=== PATIENT | female | born 1950 | race Caucasian/White ===

== ENCOUNTER → 2016-10-13 | Outpatient (CLI) | payer MEDICARE, BC ==
[2016-10-13 11:15] LABS: CH 27.3; CHCM 31.9; HCT 38.8 % (34.0-46.0); HDW 2.27; MCH 26.7 pg (25.0-35.0); MCV 86.1 fL (80.0-100.0); Mean Platelet Volume 7.4; RDW 13.3 % (11.5-15.5); WBC 14.8 k/uL (3.8-10.6)
== END | disposition home or self-care (01) ==
LOC: LABWHC1 10:35
PROVIDERS: ATTEND Orthopaedic Surgery
DX: M25.552 Pain in left hip (principal); M70.62 Trochanteric bursitis, left hip; M51.36 Other intervertebral disc degeneration, lumbar region
CPT/HCPCS: 36415; 84165; 85027

== ENCOUNTER → 2016-11-11 | Outpatient (CLI) | payer MEDICARE, BC ==
--- NOTE | 2016-11-11 14:43 | NM ---
EXAMINATION TYPE: NM bone scan whole body DATE OF EXAM: 11/11/2016 2:05 PM COMPARISON: Same day CT cap study HISTORY: Abnormal bone marrow signal per order. Symptoms of left hip and back pain per patient. Delayed whole-body scanning was performed following the injection of 27.4 mCi Tc 99m MDP. Images acq uired 3 hours post injection. Additional spot images of the thorax abdomen pelvis including calvarium are acquired FINDINGS: There is oval area of increased radiotracer uptake in the left posterior parietal region of the skull . There is focal area of abnormal radiotracer uptake involving the lower sternum just left of midline w ithout suspicious lytic or sclerotic lesion seen on corresponding CT. There is focal area of increase d radiotracer uptake anterior upper left rib again without definitive lesion seen on CT. There is focal area of abnormal uptake in the left iliac bone abutting sacroiliac joint corresponds t o destructive lytic lesion CT axial image 89. Additional smaller areas of abnormal radiotracer uptake in the sacrum just left of midline shows corresponding sclerotic focus on CT coronal image 75. Some area of abnormal uptake right pelvis does not show definitive abnormal lesion on CT. Increased uptake lower lumbar spine corresponds to focal degenerative change L4-L5 level with sclerosis and disc spac e narrowing. Mild increase uptake in both knee joints is presumed product of degenerative change. IMPRESSION: Multifocal areas of radiotracer uptake are worrisome for ossific metastatic disease. Dest ructive lesion left iliac bone is amenable to percutaneous biopsy for tissue sampling if desired. Con science technician CT correlation for cranial lesion.
--- NOTE | 2016-11-12 12:52 | CT ---
EXAMINATION TYPE: CT ChestAbdPelvis w con DATE OF EXAM: 11/11/2016 12:17 PM COMPARISON: Outside left hip MRI report dated 10/15/2016 which reports multiple bone lesions in the pe lvis, largest measuring 3.3 cm in the posterior left iliac bone. HISTORY: 66-year-old female complains of low back pain and left hip pain. Abnormal bone marrow signal , observation. TECHNIQUE: Contiguous axial scanning of the chest, abdomen, and pelvis performed with IV Contrast, pa tient injected with 100 mL of Omnipaque 300. Delayed images through the kidneys were obtained. Rich l/sagittal reconstructions performed. CT DLP: 1049.1 mGycm Automated exposure control for dose reduction was used. FINDINGS: CHEST: The heart is normal size without pericardial effusion. Coronary vessel calcifications are present in remarkable for coronary artery disease. Mild to moderate atherosclerotic plaque within the thoracic aorta. Conventional arch vessel branching anatomy. There is a borderline enlarged 1 cm precarinal lymph node. Suggestion of left paraesophageal lymphade nopathy measuring up to 1.5 cm below the level of the richy. Additional smaller lower paraesophageal lymph nodes are suggesting measure 9 and 11 mm, axial image 39 and 42. There is masslike area of consolidation extending from the left infrahilar region within the lower lo be down to the peripheral left base pleural surface and also extending into the inferior lingula. Thi s region spans 9.9 x 4.2 cm on axial image 38 and cuts off an anterior segmental left lower lobe bron chus, axial image 30. 5 mm indeterminate pulmonary nodule anterior right mid lung axial image 28. No pleural effusion. ABDOMEN: Low attenuation of the hepatic parenchyma suggesting hepatic steatosis. Portal venous system is paten t. Cholecystectomy clips are present. No biliary ductal dilatation. Adrenal glands, right kidney, spleen, and pancreas appear within normal limits. Mildly enlarged jose hepatic lymph node measuring 1.3 cm is indeterminate. Portacaval lymph node is prominent but within normal limits at 9 mm. No dilated small bowel, free fluid, or free air. Moderate prostatic calcifications throughout the abdominal aorta and iliac arteries. Normal appendix. There is sigmoid diverticulosis without pericolonic inflammatory change. There is focal eccentric wall thickening along the left lateral aspect of the distal sigmoid measurin g 1.5 x 2.2 cm, axial image 92, coronal image 53, and sagittal image 57 which warrants further evalua tion. Pelvis: There is some pelvic floor relaxation. Uterus and ovaries are visualized. 1.8 cm low-density area inv olving the left ovary and a 4.4 cm cystic lesion involving the right ovary which warrants ultrasound evaluation for further characterization. No abnormal fluid collection in the pelvis and no pelvic lym phadenopathy seen. Bones: There is a 3.4 cm lytic lesion within the posterior left iliac bone which thins the overlying lateral iliac cortex. There appears to be a second lesion within the left sacroiliac adjacent to the SI join t characterize by cortical loss anteriorly, axial image 85. Additional lesion seen within the right i liac wing probably eroding the anterior cortex. Suspicious round lesions within the L4 and T9 vertebral bodies. IMPRESSION: 1. A MASSLIKE AREA OF CONSOLIDATION EXTENDING FROM THE LEFT INFRAHILAR REGION TO THE PERIPHERAL LEFT LUNG BASE MEASURING 9.9 X 4.2 CM CUTTING OFF AN ANTERIOR SEGMENTAL LEFT LOWER LOBE BRONCHUS. GIVEN TH E OSSEOUS FINDINGS, LUNG CANCER SHOULD BE EXCLUDED. ENDOBRONCHIAL EVALUATION CAN BE CONSIDERED. 2. A 2.2 CM AREA OF SOFT TISSUE THICKENING ALONG THE LEFT LATERAL WALL OF THE DISTAL SIGMOID. DIRECT VISUALIZATION TO EXCLUDE A NEOPLASTIC ETIOLOGY. 3. PELVIC ULTRASOUND TO FURTHER CHARACTERIZE THE CYSTIC OVARIAN LESIONS MEASURING UP TO 4.4 CM ON THE RIGHT. IN A POSTMENOPAUSAL PATIENT, CYSTIC EPITHELIAL OVARIAN NEOPLASMS ARE IN THE DIFFERENTIAL. 4. PARAESOPHAGEAL LYMPHADENOPATHY MEASURING UP TO 1.5 CM SUSPICIOUS FOR METASTATIC DISEASE. A 5 MM RI GHT MIDLUNG PULMONARY NODULE IS NONSPECIFIC AND SHOULD BE FOLLOWED. 5. NONSPECIFIC MILDLY ENLARGED JOSE HEPATIC LYMPH NODE AT 1.3 CM. 6. OSSEOUS METASTATIC DISEASE TO THE PELVIS AND ADDITIONAL SUSPICIOUS FOCI INVOLVING L4 AND T9 VERTEB RAL BODIES. LARGEST BONE LESION MEASURES 3.4 CM INVOLVING THE LEFT POSTERIOR ILEUM.
== END | disposition home or self-care (01) ==
LOC: RADNMMAIN 09:53
PROVIDERS: ATTEND Internal Medicine Hematology & Oncology
DX: C79.51 Secondary malignant neoplasm of bone (principal); R91.8 Other nonspecific abnormal finding of lung field; N83.201 Unspecified ovarian cyst, right side; R59.9 Enlarged lymph nodes, unspecified; Z88.8 Allergy status to other drugs, medicaments and biological substances
CPT/HCPCS: 71260; 74177; 78306; A9503; Q9967

== ENCOUNTER 2016-11-18 10:58 | Day surgery (SDC) | payer MEDICARE, BC ==
[2016-11-17 08:57] VITALS: BMI 31.6
[~2016-11-18 10:58] MED LIST: ALBUTEROL NEB (CONC) 2.5 MG/0.5 ML INHALATION ONE; ATROPINE SULFATE 0.4 MG/ML 1 ML VIAL IM ONE; LACTATED RINGERS 1,000 ML IV ONE; LIDOCAINE 2% (PF) 20 MG/ML 10ML INHALATION ONE
[2016-11-18] MEDS ORDERED: LACTATED RINGERS 1,000 ML IV ONE (11:12)
[2016-11-18 11:18] VITALS: TEMP 98
[2016-11-18] MEDS ORDERED: LIDOCAINE 1% 20 ML VIAL (10MG/ML) FOR IV START INTRADERMA ONE (11:29)
[2016-11-18 11:38] LABS: Glucose,Whole Blood 123 mg/dL (75-99)
[2016-11-18] MEDS ORDERED: MIDAZOLAM 2 MG/2 ML VIAL ONE (11:59)
[2016-11-18] MEDS ORDERED: GLYCOPYRROLATE 0.2 MG/ML 2 ML VIAL ONE (11:59)
[2016-11-18] MEDS ORDERED: LIDOCAINE 1% INJ 10MG/ML (20 ML MDV) ONE (11:59)
[2016-11-18] MEDS ORDERED: PROPOFOL 10 MG/ML 20 ML VIAL IV ONE (11:59)
[2016-11-18 12:31] VITALS: RESP 14
[2016-11-18 13:51] VITALS: BP 162/70; PULSE 89
--- NOTE | 2016-11-18 20:35 | PCN ---
DATE OF PROCEDURE: PROCEDURE PERFORMED: Bronchoscopy, airway examination, brushes, washes and endobronchial biopsies left lower lobe. PREOPERATIVE DIAGNOSIS: Lung mass. POSTOPERATIVE DIAGNOSIS: Lung mass. DESCRIPTION OF PROCEDURE: The patient received unconscious sedation with general anesthesia. UNDER GROUND [employer]ER provided. The patient's procedure was done in Room #2. There was informed consent. There was universal timeout. After the patient was adequately sedated, and being fully monitored, the bronchoscope was inserted through the right nostril. It passed through the right nasopharynx into the oropharynx. The hypopharynx was identified and topicalized. The hypopharyngeal structures, including anterior commissure, true cords, false cords, arytenoids, piriform sinuses, right and left valleculae all appeared normal. After topicalization, bronchoscope was pushed through the glottic opening into the trachea. Trachea appeared normal. Tracheal richy was sharp. Right and left mainstem were topicalized. The right upper lobe and its 3 segments, the right lower lobe and its 2 segments, the right middle lobe and its 2 segments, and the right lower lobe and its 5 segments were all found to be normal. On the left side, likewise, the left upper lobe proper and its 2 segments, and the lingula and its 2 segments, were found to be normal. In the left lower lobe, I was expecting to find an endobronchial lesion. I did not find any. There was some mucosal irregularity. There was no distinct mass or tumor. I went ahead and did endobronchial biopsies, brushes and washes in the left lower lobe. The patient tolerated the procedure well. There was minimal bleeding. There was good hemostasis prior to the bronchoscope was being withdrawn. The patient tolerated the procedure well. Will be recovered. I may need another procedure down the line depending on the results here. Again, the patient tolerated the procedure well without difficulty.
[2016-11-18 21:58] LABS: RBC, Body Fluid 61500 /uL
== END 2016-11-18 13:38 | disposition home or self-care (01) ==
LOC: ORWHC2ENDO 10:58
PROVIDERS: ATTEND Internal Medicine Critical Care Medicine
DX: J98.4 Other disorders of lung (principal); J18.9 Pneumonia, unspecified organism; Z88.8 Allergy status to other drugs, medicaments and biological substances; I10 Essential (primary) hypertension; E78.5 Hyperlipidemia, unspecified; E11.9 Type 2 diabetes mellitus without complications; M54.5 Low back pain; Z79.84 Long term (current) use of oral hypoglycemic drugs; Z79.899 Other long term (current) drug therapy; Z79.891 Long term (current) use of opiate analgesic; Z87.891 Personal history of nicotine dependence
CPT/HCPCS: 94640; 87798 ×4; 87496; 87498; 87529; 88104; 88108; 88305; 89050; 87252; 87502; 87070; 87205; 87116; 87102; 87186; 87206; 31625; 31623; J2250; J0461; J2001 ×2; J2704; 31624

== ENCOUNTER → 2016-11-25 | Outpatient (CLI) | payer MEDICARE, BC ==
--- NOTE | 2016-11-25 10:44 | BD ---
EXAMINATION TYPE: MG DEXA axial skeleton. DATE OF EXAM: 11/25/2016 10:20 AM COMPARISON: Prior DEXA bone scan report January 25, 2002. CLINICAL HISTORY: Postmenopausal female Height: 5 FT 3/4 IN Weight: 161 FRAX RISK QUESTIONS: Alcohol (3 or more units per day): YES Family History (Parent hip fracture): NO Glucocorticoids (More than 3mos): NO (Ex: prednisone, prednisolone, methylprednisolone, dexamethasone, and hydrocortisone). History of Fracture in Adulthood: YES Secondary Osteoporosis: 1. Type 1 Diabetes: NO 2. Hyperthyroidism: NO 3. Menopause before 45: NO 4. Malnutrition: NO 5. Chronic liver disease: NO Rheumatoid Arthritis: NO Current Tobacco Use: NO RISK FACTORS HISTORY OF: History of Wrist Fracture: RT WRIST When: IN HER 30'S Other Fractures since Age 48: YES RT FOOT When: AGE 56 Drink Alcohol: YES Active: NO Postmenopausal woman: AGE 47 MEDICATIONS: Additional Medications: METFORMIN,VALESTAR,,VIT CALCIUM Additional History: EXAM MEASUREMENTS: Bone mineral densitometry was performed using the [place] System. Bone mineral density as measured about the Lumbar spine is: ----- L1-L4(G/cm2): 1.022 T Score Values are as follows: ----- L2: -2.7 ----- L3: -1.1 ----- L4: 0.1 ----- L1-L4: 1.3 Bone mineral density has: Decreased -5.6% since study of: 2001 Bone mineral density about the R hip (g/cm2): 0.875 Bone mineral density about the L hip (g/cm2): 0.823 T Score values are as follows: -----R Neck: -1.2 -----L Neck: -1.5 -----R Intertrochanter: -1.7 -----L Intertrochanter: -2.0 Bone mineral density has: Decreased -11.1% since study of: 2001 IMPRESSION: Osteopenia (T Score between -2.5 and -1 as noted by T score values in the low back and femoral neck l evel and bilateral hips. Bone density is noted decreased or diminished from prior exam.There is sligh tly increased risk of fracture and the patient may be considered for treatment. Re-Screen 1-2 years. NOTE: T-SCORE=SD OF THE YOUNG ADULT MEAN.
--- NOTE | 2016-11-25 11:43 | MM ---
Reason for exam: screening (asymptomatic). Last mammogram was performed 1 year ago. History: Patient is postmenopausal. Family history of breast cancer in grandmother at age 70. Benign excisional biopsy of the right breast. Physical Findings: A clinical breast exam by your physician is recommended on an annual basis and results should be correlated with mammographic findings. MG 3D Screening Mammo W/Cad Bilateral CC and MLO view(s) were taken. Prior study comparison: November 24, 2015, bilateral MG screening mammo w CAD. November 21, 2014, bilateral MG screening mammo w CAD. April 29, 2014, bilateral MG screening mammo w CAD. The breast tissue is heterogeneously dense. This may lower the sensitivity of mammography. Finding: There are indeterminate, grouped/clustered calcifications in the upper outer quadrant, posterior position of the left breast. There is a chronic nodularity in the right breast. Increase in number of calcifications. ASSESSMENT: Incomplete: need additional imaging evaluation, BI-RAD 0 RECOMMENDATION: Special view mammogram of the left breast. [facility] will attempt to contact patient to return for supplemental views.
== END | disposition home or self-care (01) ==
LOC: RADMAMWWP 09:43
PROVIDERS: ATTEND Family Medicine
DX: Z12.31 Encounter for screening mammogram for malignant neoplasm of breast (principal); R92.8 Other abnormal and inconclusive findings on diagnostic imaging of breast; M85.89 Other specified disorders of bone density and structure, multiple sites; N95.8 Other specified menopausal and perimenopausal disorders
CPT/HCPCS: 77080; 77063; G0202

== ENCOUNTER 2016-12-03 09:34 | Day surgery (SDC) | payer MEDICARE, BC ==
[2016-12-03 10:21] VITALS: RESP 16
[2016-12-03 10:30] LABS: Mean Platelet Volume 7.4
[2016-12-03 10:34] LABS: Prothrombin Time 10.5 sec (9.0-12.0)
[2016-12-03 11:09] VITALS: TEMP 98
[2016-12-03 12:05] LABS: Glucose,Whole Blood 104 mg/dL (75-99)
[2016-12-03] MEDS ORDERED: HYDROmorphone 1 MG/ML 1 ML SYRINGE IVP STA (12:21)
[2016-12-03 13:03] VITALS: BP 121/78; PULSE 68
--- NOTE | 2016-12-03 15:53 | CT ---
EXAMINATION TYPE: CT biopsy bone superficial fine-needle aspiration lytic bone lesion, core biopsy ly tic bone lesion left ilium DATE OF EXAM: 12/03/2016 1:02 PM HISTORY: Metastatic disease, multiple lytic bone lesions, breast cancer COMPARISON: NONE Maximal barrier technique was utilized. The skin overlying a suitable path to the lesion was localiz ed using CT and the overlying skin was prepped and draped. Lidocaine used for local anesthesia. A s kin doris made with a scalpel. Using CT guidance, access was gained to the lesion with a 22-gauge nee dle through a 20-gauge guide. Aspirated specimen submitted to cytology. 5 passes were performed in all. Following inadequate cytology and 18-gauge needle was advanced and core specimen was obtained. Following the procedure no immediate complications. The patient is discharged in stable condition. Hemostasis achieved. IMPRESSION: SUCCESSFUL CT GUIDED CORE BIOPSY and fine-needle aspiration. PATHOLOGY PENDING. THIS PROCEDURE WAS PERFORMED BY THE UNDERSIGNED.
== END 2016-12-03 13:35 | disposition home or self-care (01) ==
LOC: RADPROMAIN 09:34
PROVIDERS: ATTEND Internal Medicine Hematology & Oncology
DX: C79.51 Secondary malignant neoplasm of bone (principal); C50.919 Malignant neoplasm of unspecified site of unspecified female breast
CPT/HCPCS: 88305; 88173; 85049; 85610; 88342; 88341; 96374; 36415; 77012; 20220; J1170

== ENCOUNTER → 2016-12-11 | Outpatient (CLI) | payer MEDICARE, BC ==
--- NOTE | 2016-12-12 13:40 | PE ---
EXAMINATION TYPE: PET CT fusion skull to thigh DATE OF EXAM: 12/11/2016 1:18 PM CLINICAL HISTORY: 66-year-old female initial staging lung cancer. Diagnosed in November 2016. History of left hip bone biopsy on 12/03/2016. TECHNIQUE: Following the intravenous administration of 10.46 mCi of F-18 FDG, whole body images are performed from the skull base to the midthigh. Images are reviewed on the computer in the coronal, axial, and sagittal planes. Reconstructed rotating images are created on independent workstation and reviewed on the computer. A localization and attenuation correction CT is performed in conjunction with the PET scan. Glucose level: 112 mg/dL CDTI: 4.97 mGy DLP: 384.03 mGy/cm COMPARISON: Correlation bone biopsy 12/03/[address] 11/11/2016. FINDINGS: PET: Physiologic FDG uptake within the neck. Borderline enlarged 1 cm precarinal and left tracheobronchial angle lymph nodes show no significant F DG uptake. However, there is left hilar/infrahilar conglomerate lymphadenopathy with a lymph node measuring up t o 2.0 cm thick axial image 89, increased in size from 1.5 cm on 11/11/2016. Maximal SUV 5.7. There are hypermetabolic discontinuous masslike areas extending from the left infrahilar region to th e peripheral left base within the anterior left lower lobe and inferior lingula. These measure up to 3.6 cm in the infrahilar region (max SUV 5.9) and 2.3 cm in the inferior lingula (max SUV 4.0). There is a focal area of mild to moderate FDG uptake in the adjacent basilar left lower lobe as well (max SUV 3.1). The remainder of the density surrounding these areas shows minimal FDG uptake likely representing a c ombination of postobstructive atelectasis and pneumonitis. There is trace pleural fluid on the left. Adrenal glands are clear. 2.3 cm ametabolic cyst medial lower pole left kidney. Stable 4.2 cm cystic right ovarian lesion shows no FDG uptake. Smaller cystic 1.9 cm left ovarian les ion also shows no FDG uptake. Scattered lytic osseous metastatic disease including the: - left anterolateral intertrochanteric region, axial image 211, - left greater than right posterior iliac bone with lytic cortical destruction on the left, - left paramedian sacrum, - left sacroiliac adjacent to the SI joint, - right iliac wing, left iliac crest, - L4 vertebral body, small focus within the L1 vertebral body, - left T9 vertebral body, right T8 lamina, right T4 posterior elements with destruction of the transv erse process, pedicle, and a portion of the lamina, - left posterolateral third rib, left second rib end, - right sternal manubrium, and midsternal body with corresponding anterior and posterior cortical los s. Maximal SUV involving the left iliac bone 10.2, L4 vertebral body 8.5, left second rib end 4.0, and s ternal body 4.7. ATTENUATION CORRECTION CT: Visualized paranasal sinuses and mastoid air cells are clear. No cervical lymphadenopathy. Heart is normal size without pericardial effusion. Coronary vessel calcifications are present in constanza rkable for coronary artery disease. Aorta is normal caliber with mild atherosclerotic arch calcifica tions and conventional arch vessel branching anatomy. Small hiatal hernia. Cholecystectomy clips. Moderate atherosclerotic calcifications abdominal aorta and iliac arteries. No dilated small bowel, free fluid, or free air. No mesenteric or retroperitoneal lymphadenopathy. Scattered mild to moderate bowel uptake likely physiologic uptake. Sigmoid divertic ulosis without acute diverticulitis. Pelvic phleboliths. No abnormal fluid collection in the pelvis or pelvic lymphadenopathy. IMPRESSION: 1. Three discontinuous areas of abnormal hypermetabolism measuring up to 3.6 cm within the left infra hilar region, peripheral left lower lobe, and inferior lingula suggestive of lung cancer. There is pham rrounding postobstructive atelectasis and pneumonitis. 2. Left hilar/infrahilar metastatic lymphadenopathy measuring up to 2 cm. 3. Osseous metastatic disease to the sternum, left-sided ribs, thoracic, lumbar, and sacral spine, pe lvis, and proximal left femur. 4. Bilateral ovarian cystic lesions measuring 4.2 cm on the right and 1.9 cm on the left. These are a bnormal for a postmenopausal female. 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 Pelvic ultrasound can further characterize and determine subsequent follow-up . 5. Sigmoid diverticulosis and small hiatal hernia.
== END | disposition home or self-care (01) ==
LOC: RADPETMAIN 11:30
PROVIDERS: ATTEND Internal Medicine Hematology & Oncology
DX: C79.51 Secondary malignant neoplasm of bone (principal); C77.9 Secondary and unspecified malignant neoplasm of lymph node, unspecified; J98.11 Atelectasis; C34.90 Malignant neoplasm of unspecified part of unspecified bronchus or lung; J18.9 Pneumonia, unspecified organism; N83.8 Other noninflammatory disorders of ovary, fallopian tube and broad ligament; Z78.0 Asymptomatic menopausal state; K57.30 Diverticulosis of large intestine without perforation or abscess without bleeding; K44.9 Diaphragmatic hernia without obstruction or gangrene
CPT/HCPCS: 78815; A9552

== ENCOUNTER → 2016-12-16 | Outpatient (CLI) | payer MEDICARE, BC ==
--- NOTE | 2016-12-16 16:15 | MR ---
EXAMINATION TYPE: MR brain wo/w con DATE OF EXAM: 12/16/2016 4:05 PM COMPARISON: NONE HISTORY: Patient feels lump on head, Malignant Neoplasm Lower Lobe, HX of lung ca CONTRAST: Performed utilizing 13 mL intravenous MultiHance gadolinium contrast. TECHNIQUE: Multiplanar, multiecho imaging on a 3.0 Radha magnet is performed through the brain. Stud y is performed within 24 hours of arrival to the hospital. The craniovertebral junction is normal. The pituitary is normal. Diffusion-weighted imaging is performed. No abnormal hyperintensity is present to suggest an acute i ntracranial infarct or acute ischemic change. There is some mild increased signal within the calvariu m of the left parietal-occipital region. On postcontrast imaging there is a irregular enhancing mass within the calvarium causing expansion with some mild impression on the adjacent brain is measured ap proximately 4.1 x 2.9 x 5.9 cm and is compatible with metastatic lesion. No edema within the adjacent brain is evident. There is a hyperintensity within the inferior lateral right basal ganglia may represent an old lacuna r infarct. There is some enhancement within the left cerebellum. This is hyperintense on T2-weighted sequences a nd measures approximately 0.8 cm. An intraparenchymal metastatic lesion should be considered. Series 701 image 60 Ventricles and sulci are appropriate for the patient age. IMPRESSIONS: 1. 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 2. Small intraparenchymal enhancing lesion within the posterior left cerebellum.
== END | disposition home or self-care (01) ==
LOC: RADMRIMAIN 14:42
PROVIDERS: ATTEND Internal Medicine Hematology & Oncology
DX: C79.31 Secondary malignant neoplasm of brain (principal); C34.90 Malignant neoplasm of unspecified part of unspecified bronchus or lung
CPT/HCPCS: 70553; A9577

== ENCOUNTER → 2017-02-18 | Outpatient (CLI) | payer MEDICARE, BC ==
--- NOTE | 2017-02-18 13:23 | MR ---
EXAMINATION TYPE: MR brain wo/w con DATE OF EXAM: 02/18/2017 COMPARISON: 12/16/2016 HISTORY: secondary malignant neoplasm of brain CONTRAST: Performed utilizing 13 mL intravenous MultiHance gadolinium contrast. TECHNIQUE: Multiplanar, multiecho imaging on a 3.0 Radha magnet is performed through the brain. Stud y is performed within 24 hours of arrival to the hospital. The craniovertebral junction is normal. The pituitary is normal. Diffusion-weighted imaging is performed. No abnormal hyperintensity is present to suggest an acute i ntracranial infarct or acute ischemic change. There are scattered punctate areas of hyperintensity on T2 and Inversion Recovery weighted sequences which are non-specific but can be related to microvascular ischemic changes. Lacunar infarct may be w ithin the right basal ganglion. Lacunar infarct may be within the left posterior cerebellum. Ventricles and sulci are appropriate for the patient age. T2 hyperintense areas within the left calvarium without expansion of the calvarium. This has peripher al wall enhancement. Interior snider are irregular. This area measures estimated 6.3 x 2.0 x 6.4 cm. F indings are compatible with a neoplastic process. Additional areas of calvarial abnormality include t he right parietal lobe. Series 601 image 68. Punctate area near the parietal temporal junction on the right. Series 601 image 56 IMPRESSIONS: 1. Calvarial metastasis discussed above. 2. Chronic appearing white matter ischemic changes. 3. Mass appears slightly larger than the 12/16/2016 exam.
== END | disposition home or self-care (01) ==
LOC: RADMRIMAIN 11:05
PROVIDERS: ATTEND Radiology Radiation Oncology
DX: C79.31 Secondary malignant neoplasm of brain (principal)
CPT/HCPCS: 70553; A9577

== ENCOUNTER → 2017-03-22 | Outpatient (CLI) | payer MEDICARE, BC ==
[2017-03-22 08:23] LABS: Blood Urea Nitrogen 13 mg/dL (7-17); Non-African American GFR(MDRD) >60 (>60 ml/min/1.73 sqM)
--- NOTE | 2017-03-22 10:40 | CT ---
EXAMINATION TYPE: CT ChestAbdPelvis w con DATE OF EXAM: 03/22/2017 COMPARISON: 11/11/2016 HISTORY: Lung Cancer CT DLP: 809.90 mGycm CONTRAST: CT scan of the chest, abdomen and pelvis is performed with Oral Contrast and with IV Contrast, patien t injected with 100 ml mL of Omnipaque 300. CT Chest: LUNGS: Left infrahilar masslike density with pleural extension persists although is much smaller in s ize and currently measures 6.1 x 2.4 cm versus 9.9 x 4.2 cm previously. There is adjacent pleural thi ckening. Small left-sided pleural effusion noted. Obstruction of a left lower lobe bronchus again see n. Adjacent satellite pulmonary nodule measuring 9 mm as well as a 3 mm left lower lobe pulmonary nod ule. 3 mm nodule right upper lobe noted as well. Additional nodule seen along the left major fissure measuring 4 mm MEDIASTINUM: Thoracic aorta is of normal caliber. The heart is not enlarged. Paraesophageal adenopa thy is noted and currently measures 1.5 cm versus 1.5 cm previously. No additional mediastinal adenop athy HILAR STRUCTURES: Left hilar adenopathy measuring 1.5 cm versus 1.7 cm previously. No right hilar igor nopathy appreciated. OTHER: No significant abnormality. CONTRAST CT ABDOMEN AND PELVIS FINDINGS: LIVER/GB: Noted are 4 new subcentimeter lesions of decreased attenuation within the posterior segment right hepatic lobe measuring 8.5 mm, 7.3 mm and 6.7 mm respectively. The fourth lesion is seen withi n the periphery of the lateral segment left hepatic lobe and measures 6.2 mm. Metastatic disease is n ot excluded. The gallbladder is surgically absent. Hepatic steatosis noted mild in degree. PANCREAS: No inflammation. No distinct mass. SPLEEN: No splenic enlargement. No lesion seen. ADRENALS: No nodule. No thickening. KIDNEYS/BLADDER: No hydronephrosis. No nephrolithiasis. Stable left renal cyst. BOWEL: Normal appendix. Normal bowel caliber. No inflammation. Diverticulosis of the sigmoid colon. GENITAL ORGANS: Stable ovarian cystic lesions are nonspecific. The uterus is grossly unremarkable. LYMPH NODES: No greater than 1cm abdominal or pelvic lymph nodes are appreciated. AORTA: No significant abnormality. OSSEOUS STRUCTURES: Progressive metastatic disease to the osseous structures including visualized tho racic lumbar sacral, pelvic, proximal left femoral and sternal lesions. OTHER: No significant additional abnormality is seen. IMPRESSION: 1. Left infrahilar soft tissue mass with pleural extension persists although is smaller in size. Ther e are several new satellite nodules which may reflect a metastatic disease. 2. New hepatic lesions suspicious for metastatic disease. 3. Progressive osseous metastases.
== END | disposition home or self-care (01) ==
LOC: RADCTMAIN 07:36
PROVIDERS: ATTEND Internal Medicine Hematology & Oncology
DX: C34.32 Malignant neoplasm of lower lobe, left bronchus or lung (principal); C79.51 Secondary malignant neoplasm of bone; K76.89 Other specified diseases of liver
CPT/HCPCS: 82565; 84520; 71260; 74177; 36415; Q9967

== ENCOUNTER → 2017-04-13 | Outpatient (CLI) | payer MEDICARE, BC ==
--- NOTE | 2017-04-13 12:23 | MR ---
EXAMINATION TYPE: MR brain wo/w con DATE OF EXAM: 04/13/2017 COMPARISON: 02/18/2017 HISTORY: secondary malignant neoplasm of brain, lung ca TECHNIQUE: Multiplanar, multisequence images of the brain and brainstem is performed without and with IV contras t, utilizing 15 mL intravenous MultiHance . FINDINGS: There are total of 6 calvarial lesions with the largest overlying the left parietal calvari um. There is a complex lesion involving the left posterior parietal calvarium which previously measured 6 .4 x 2.0 x 6.4 cm in dimension and now measures 6.8 x 1.7 x 5.1 cm. Dural enhancement along the large calvarial lesion is stable. Three Additional left parietal calvarial enhancing lesions are stable, the largest measuring 1.3 cm. 5 mm area of enhancement involving the right parietal calvarium is stable. Along the superior right parietal calvarium there is an additional enhancing lesion which measures 5 mm and previously measured 6 mm. No intraparenchymal lesions are seen. Area of encephalomalacia involving the right parietal white mat ter extending into the basal ganglia is stable. There is no midline shift. Small subcentimeter focus within the left cerebellar hemisphere also stable likely related to focal area of remote ischemia. Nasal septal deviation seen findings of chronic mastoiditis and sinusitis. There are numerous nonspecific areas of abnormal signal the white matter most typical remote microvas cular ischemia. Ventricular dilation stable compatible with age related changes. . IMPRESSION: 1. There are stable number of calvarial lesions with the largest seen on the left which demonstrates very minimal change in size relative to the previous exam as measured above.
== END | disposition home or self-care (01) ==
LOC: RADMRIMAIN 10:24
PROVIDERS: ATTEND Radiology Radiation Oncology
DX: C79.31 Secondary malignant neoplasm of brain (principal)
CPT/HCPCS: 70553; A9577

== ENCOUNTER → 2017-05-04 | Outpatient (CLI) | payer MEDICARE, BC ==
[2017-05-04 12:03] LABS: Blood Urea Nitrogen 14 mg/dL (7-17); Non-African American GFR(MDRD) >60 (>60 ml/min/1.73 sqM)
--- NOTE | 2017-05-04 12:41 | CT ---
EXAMINATION TYPE: CT chest w con DATE OF EXAM: 05/04/2017 COMPARISON: CT cap March 22, 2017. PET CT December 11, 2016. HISTORY: c/o sob since last chemo tx 2 months ago for lung ca CT DLP: 283.6 mGycm. Automated Exposure Control for Dose Reduction was Utilized. TECHNIQUE: CT scan of the thorax is performed following with IV Contrast, patient injected with 100 mL of Omnipaque 300. FINDINGS: LUNGS: Residual masslike pleural thickening anteriorly in the left lung base remains present measurin g approximately 6.4 x 2.1 cm on axial image 37 not significantly changed from prior. There is adjacen t linear scarring and/or atelectasis in the left lung base that remains present. Slightly more nodula r appearance near axial image 38 lateral aspect is stable. Masslike consolidation possible irregular neoplasm left infrahilar level measuring 2.9 x 1.4 cm on axial image 31 is fairly stable from prior e xam with left hilar extension superiorly. There is additional small amount of fluid or thickening i n the left major fissure superiorly redemonstrated. No new consolidation is present. There is stable subcentimeter scarlike opacity anteriorly right midlung on axial image 27 There is no pleural effusio n or pneumothorax seen bilaterally. The tracheobronchial tree is patent. MEDIASTINUM: There are no greater than 1 cm hilar or mediastinal lymph nodes. There is new tiny peric ardial effusion. Heart size is stable and upper limits of normal. Coronary artery calcification is re demonstrated which is noted marker for coronary artery disease. OTHER: Cholecystectomy clips are redemonstrated. There is lytic lesion right T5 transverse process on axial image 19 improved from PET/CT. There is redemonstration of sclerotic sternal lesion on axial i mage 25. There is interval sclerosis of lytic left vertebral lesion T9 level on axial image 35. There are however new sclerotic foci near thoracolumbar junction present in new lytic lesion L1 level pres ent. IMPRESSION: Interval improvement in previously visualized PET/CT bone lesions but new bone lesions ar e now noted. There is stable appearance of known left infrahilar mass with hilar invasion and anterio r inferior pleural extension to lung base since recent PET/CT. No new acute pulmonary process is evid ent.
== END | disposition home or self-care (01) ==
LOC: RADCTMAIN 11:19
PROVIDERS: ATTEND Internal Medicine Hematology & Oncology
DX: C34.32 Malignant neoplasm of lower lobe, left bronchus or lung (principal); M89.8X8 Other specified disorders of bone, other site
CPT/HCPCS: 82565; 84520; 71260; 36415; Q9967

== ENCOUNTER → 2017-06-22 | Outpatient (CLI) | payer MEDICARE, BC ==
[2017-06-22 11:18] LABS: Blood Urea Nitrogen 19 mg/dL (7-17); Non-African American GFR(MDRD) 51 (>60 ml/min/1.73 sqM)
[2017-06-22 12:26] LABS: ALT 24 U/L (9-52); AST 29 U/L (14-36); Alkaline Phosphatase 116 U/L (38-126); Anion Gap 11 mmol/L; Calcium 9.7 mg/dL (8.4-10.2); Carbon Dioxide 24 mmol/L (22-30); Chloride 100 mmol/L (98-107); Glucose 176 mg/dL (74-99); Potassium 4.4 mmol/L (3.5-5.1); Sodium 135 mmol/L (137-145); Total Bilirubin 0.4 mg/dL (0.2-1.3); Total Protein 8.2 g/dL (6.3-8.2)
--- NOTE | 2017-06-22 15:02 | CT ---
EXAMINATION TYPE: CT ChestAbdPelvis w con DATE OF EXAM: 06/22/2017 INDICATION: f/u lung cancer COMPARISON: 05/04/2017 CT chest, CT chest abdomen pelvis 03/22/2017 CT DLP: 664.7 mGycm CONTRAST: Performed with Oral Contrast and with IV Contrast, patient injected with 80 ml mL of Visipaque 320. TECHNIQUE: Axial images at 5 mm thick sections. Reconstructed images in the coronal plane. Delayed images through the kidneys. FINDINGS: CT CHEST: Portion of the thyroid visualized is normal. There is a stable nodule in the posterior medial right apex measuring 0.5 cm. Punctate nodularities a long the anterior right chest wall margin and was present previously. Series 4 image 18. Previous nod ules along the major fissure on the right are less dense than the comparison studies. Size appears si milar. There is some thickening along the major fissure on the left which communicates with a masslike area within the lung bases within the lingula. This major fissure thickening is less prominent than the co mparison. Within the lingula there is a masslike area measuring 2.6 cm in diameter. This lingular are a is larger than the comparison. Minimal pericardial effusion or mild pericardial thickening may be present. Small left pleural effusi on has developed. No enlarged mediastinal or hilar adenopathy is evident. The ascending aorta diameter at the level of the main pulmonary artery is 2.9 cm. The main pulmonary artery diameter at the bifurcation is 2.9 cm. Coronary artery calcifications present. CT ABDOMEN: Liver: There is a 2.0 cm hypodense lesion within the medial left lobe liver. A 0.9 cm hypodensity is within the lateral inferior right lobe liver. These are new and suspicious for metastatic disease. Spleen: Normal Pancreas: Normal Adrenal glands: Right adrenal gland measures 1.3 cm in transverse dimension may be slightly more prom inent than the comparison left adrenal gland appears stable Gallbladder: Surgically absent Kidneys: No masses are evident. No hydronephrosis is present. There is a 3.0 cm anterior medial lef t cyst measuring 8 Hounsfield units. Delayed images were obtained through the kidneys, which remain unremarkable. Aorta: Vascular calcification is within the aorta. Inferior vena cava: Normal. CT PELVIS: Loops of bowel within the abdomen and pelvis are normal. There are loops of bowel which are incom pletely distended or lack oral contrast limiting their evaluation. Appendix: Normal as visualized. Urinary bladder: Decompressed with limited evaluation. Genitourinary structures: Uterus appears normal. There is a 3.2 cm cyst on the right ovary. Left adne xal region appears clear. Osseous structures: There are multiple small sclerotic hyperintensities within the osseous structures suspicious for metastatic disease. This would include the superior left acetabulum, posterior left f emoral neck. Posterior right acetabulum. Posterior superior left acetabulum. Left femoral head. Throu gh the iliac wings bilaterally, S1, multiple lesions within the lower lumbar vertebral bodies within the lower thoracic vertebral bodies. Sclerotic lesions may be within the left RIBS within the cervica l spine vertebral bodies. Vacuum joint space phenomenon is in the sacroiliac joints. IMPRESSIONS: 1. Increasing masslike area within the lingula. 2. Interval development of hepatic lesions. 3. Multiple sclerotic bone lesions. A Yellow message has been communicated to Sae Valle MD via the [employer] Critical Result system on 06/22/2017 2:59 PM, Message ID [id number].
== END | disposition home or self-care (01) ==
LOC: RADCTMAIN 10:46
PROVIDERS: ATTEND Internal Medicine Hematology & Oncology
DX: C34.32 Malignant neoplasm of lower lobe, left bronchus or lung (principal); K76.9 Liver disease, unspecified; M89.9 Disorder of bone, unspecified; Z88.8 Allergy status to other drugs, medicaments and biological substances
CPT/HCPCS: 80053; 71260; 74177; Q9967

== ENCOUNTER → 2017-07-11 | Outpatient (CLI) | payer MEDICARE, BC ==
--- NOTE | 2017-07-11 13:22 | MR ---
EXAMINATION TYPE: MR brain wo con DATE OF EXAM: 07/11/2017 1:11 PM COMPARISON: April 13, 2017 HISTORY: secondary malignant neoplasm of brain FINDINGS: The ventricles, basal cisterns and sulci overlying the cerebral convexities are moderately enlarged. There is evidence of moderate periventricular white matter ischemic demyelination. Remote insult rig ht basal ganglia is unchanged. Remote deep white matter insults are also noted. Again noted are approximately 6 calvarial lesions with the largest lesion of the left posterior parie emre calvarium which appears to be somewhat enlarged and currently measures 7 x 1.7 cm versus 6.4 x 2. 0 cm previously. Examinations are difficult to compare given the lack of contrast on today's examinat ion. Again noted is left epidural extension. No acute edema is seen on diffusion weighted imaging. There is no evidence for midline shift or mass effect. Acute intracranial hemorrhage or extra-axial collection is not evident. The paranasal sinuses and mastoid air cells are well-aerated. IMPRESSION: 1. Calvarial lesions again noted although direct comparison is difficult given the lack of contrast o n today's study. The largest dominant lesion left parietal calvarium posteriorly appears to have prog ressed slightly in the interval. 2. Age-related atrophic and chronic small vessel ischemic change. No acute intracranial process at this time.
== END | disposition home or self-care (01) ==
LOC: RADMRIMAIN 11:51
PROVIDERS: ATTEND Radiology Radiation Oncology
DX: C79.31 Secondary malignant neoplasm of brain (principal); G31.1 Senile degeneration of brain, not elsewhere classified; I67.82 Cerebral ischemia
CPT/HCPCS: 70551

== ENCOUNTER → 2017-08-03 | Outpatient (CLI) | payer MEDICARE, BC ==
[2017-08-03 13:22] LABS: Blood Urea Nitrogen 21 mg/dL (7-17); Non-African American GFR(MDRD) >60 (>60 ml/min/1.73 sqM)
--- NOTE | 2017-08-03 14:43 | CT ---
EXAMINATION TYPE: CT ChestAbdPelvis w con DATE OF EXAM: 08/03/2017 COMPARISON: 06/22/2017 HISTORY: Follow up lung cancer CT DLP: 615.0 mGycm CONTRAST: CT scan of the chest, abdomen and pelvis is performed with Oral Contrast and with IV Contrast, patien t injected with 100 mL of Omnipaque 300. CT Chest: LUNGS: Persistent mass centered within the region of the lingula which directly abuts the pericardium measures 3.8 x 2.3 cm versus 3.3 x 3.4 cm. Adjacent loculated pleural effusion. Left infrahilar mass like area persists and measures 2.4 x 1.7 cm versus 2.2 x 1.7 cm. Tiny right apical nodular density m easuring 5 mm is unchanged. Punctate nodularities along the anterior right chest wall unchanged from prior study. Right middle lobe nodular density measuring 4 mm is unchanged. Nodularity adjacent to th e right minor fissure unchanged as well. MEDIASTINUM: Thoracic aorta is of normal caliber. The heart is not enlarged. No evidence for media stinal mass or adenopathy. HILAR STRUCTURES: No evidence for mass. No hilar adenopathy is appreciated. OTHER: No significant abnormality. CONTRAST CT ABDOMEN AND PELVIS FINDINGS: LIVER/GB: 2.2 cm mass on left hepatic lobe lateral segment has increased in size versus 2 cm previous ly. Anterior segment right hepatic lobe lesion is also increased in size and measures 1.3 cm versus 0 .9 cm. Lesion within the periphery of the posterior segment right hepatic lobe measures 7.5 mm. Additional l esion anterior segment right hepatic lobe also new measures 4 mm. There is also new lesion within the inferior portion of the liver anterior segment measuring 2.2 cm. PANCREAS: No inflammation. No distinct mass. SPLEEN: No splenic enlargement. No lesion seen. ADRENALS: Stable right adrenal nodule measuring 1.3 cm. Left adrenal gland is unremarkable. No thicke diogenes. KIDNEYS/BLADDER: No hydronephrosis. No nephrolithiasis. Stable left renal cyst. No solid renal lesi ons detected. BOWEL: Normal appendix. Normal bowel caliber. No inflammation. GENITAL ORGANS: Stable right ovarian cystic lesion. Small left ovarian cyst also noted. LYMPH NODES: No greater than 1cm abdominal or pelvic lymph nodes are appreciated. AORTA: No significant abnormality. OSSEOUS STRUCTURES: Stable metastatic disease to the spine with stable pathologic fracture involving T9. No evidence of bony retropulsion. Stable blastic lesions to the pelvis and proximal left femur. S ternal lesion also identified. OTHER: No significant additional abnormality is seen. IMPRESSION: 1. Increase in size in the lingular mass which directly abuts the pericardium. Left infrahilar mass i s also a larger in size. Otherwise stable nodularity as discussed. 2. Increase in size and number of hepatic metastatic lesions. 3. Stable blastic and lytic osseous lesions. 4. Stable right adrenal lesion.
[2017-08-03 15:39] LABS: Aty Lym Flag Marked; CH 26.1; CHCM 30.7; HCT 38.9 % (34.0-46.0); HDW 2.27; HGB 11.8 gm/dL (11.4-16.0); Hypochromasia Slight; MCH 25.9 pg (25.0-35.0); MCHC 30.4 g/dL (31.0-37.0); MCV 85.3 fL (80.0-100.0); Mean Platelet Volume 8.6; RBC 4.56 m/uL (3.80-5.40); RDW 14.5 % (11.5-15.5); WBC (Perox) 1.07
[2017-08-03 15:43] LABS: Add Differential Manual Differential
== END | disposition home or self-care (01) ==
LOC: RADCTMAIN 12:15
PROVIDERS: ATTEND Internal Medicine Hematology & Oncology
DX: K46.9 Unspecified abdominal hernia without obstruction or gangrene (principal); C34.32 Malignant neoplasm of lower lobe, left bronchus or lung; M89.8X8 Other specified disorders of bone, other site; E27.8 Other specified disorders of adrenal gland
CPT/HCPCS: 82565; 84520; 85025; 71260; 74177; 36415; Q9967